=== PATIENT | male | born 1995 ===

== ENCOUNTER 2017-10-06 05:18 | Emergency (ER) | payer OTHER ==
[~2017-10-06] VITALS: Ht 182.9 cm; Wt 83.5 kg
--- NOTE | 2017-10-06 05:47 | ED Fall/Injury ---
General Stated Complaint: FELL IN BATHRM,RT SHOULDER & BACK OF HEAD PAIN Source: patient Exam Limitations: no limitations History of Present Illness Date Seen by Provider: Oct 06, 2017 Time Seen by Provider: 05:40 Initial Comments Patient presents to ER by private conveyance with his significant other's with chief complaint that just prior to arrival he fell in his bathroom striking his shoulder and the back of his head. He is having some pain in the top of the back of his neck that does not radiate. He has pain in his shoulder and a little bit of pain in the back of his arm down to his elbow. He has some abrasions on the back of his shoulder and arm as well. He denies any other trauma, fighting. He says he had one beer tonight. He does not use tobacco or recreational drugs. He is not on any medications or blood thinners. He has not had anything for the pain yet. He is not having any numbness tingling blindness , blurry vision, nausea or vomiting. Allergies and Home Medications Allergies Coded Allergies: No Known Drug Allergies (Unverified , 10/06/17) Patient Home Medication List Home Medication List Reviewed: Yes Constitutional: No chills, No diaphoresis Eyes: Denies Blindness, Denies Blurred Vision Ears, Nose, Mouth, Throat: denies ear pain, denies ear discharge Respiratory: No cough, No short of breath Cardiovascular: No chest pain, No palpitations Gastrointestinal: No abdominal pain, No constipation, No nausea, No vomiting Genitourinary: No discharge, No dysuria Past Tdfuthx-Mmtsho-Wpvtta Hx Patient Social History Alcohol Use: Occasionally Uses Alcohol Beverage of Choice: Beer Recreational Drug Use: No Smoking Status: Never a Smoker Recent Foreign Travel: No Contact w/Someone Who Travel: No Physical Exam Vital Signs Vital Signs - First Documented 10/06/17 05:40 Temp 98.0 Pulse 98 Resp 20 B/P (MAP) 142/81 (101) Pulse Ox 99 O2 Delivery Room Air Capillary Refill : General Appearance: WD/WN, no apparent distress HEENT: PERRL/EOMI, normal ENT inspection, TMs normal, pharynx normal, other ( negative for hemotympanum, gómez sign or raccoon eyes; Hematoma right occiput) Neck: supple, tender lateral (right) Cardiovascular: normal peripheral pulses, regular rate, rhythm Respiratory: chest non-tender, lungs clear, normal breath sounds, no respiratory distress, no accessory muscle use Peripheral Pulses: 2+ Radial Pulses (R), 2+ Radial Pulses (L) Neurologic/Psychiatric: jet wiper II-XII nml as tested, no motor/sensory deficits, alert, normal mood/affect, oriented x 3 Skin: other (abrasion on right scapula, right occiput of head and small abrasion on the right elbow) [place] Coma Score Best Eye Response: (4) Open Spontaneously Best Verbal Response: (5) Oriented Best Motor Response: (6) Obeys Commands Walt Total: 15 Progress/Results/Core Measures Results/Orders My Orders Orders - JEANETTE RIOS Ct Head/Cervical Spine Wo (10/06/17 05:47) Shoulder, Right, 3 Views (10/06/17 05:47) Elbow, Right, 3 Views (10/06/17 05:47) Ketorolac Injection (Toradol Injection) (10/06/17 06:00) Vital Signs/I&O Vital Sign - Last 12Hours 10/06/17 05:40 Temp 98.0 Pulse 98 Resp 20 B/P (MAP) 142/81 (101) Pulse Ox 99 O2 Delivery Room Air Progress Note : Time: 06:40 Progress Note C-collar cleared. Patient's having any pain in his neck. He does have a little tenderness in the hematoma on the back of his head. Rest imaging is unremarkable. We discussed soft tissue pain management with Tylenol, NSAIDs, ice. We will give him a dose of Toradol for the road. Diagnostic Imaging Diagonstic Imaging: Xray Plain Films/CT/US/NM/MRI: other (right shoulder) Comments No acute osseous abnormalities noted. Unremarkable soft tissues. Reviewed: Reviewed by Me Diagonstic Imaging: Xray Plain Films/CT/US/NM/MRI: elbow Comments No soft tissue abnormalities noted. No acute osseous abnormality's. Reviewed: Reviewed by Me Diagonstic Imaging: CT Plain Films/CT/US/NM/MRI: c-spine, head Comments No intracranial hemorrhage, mass effect, midline shift, tumor, cervical spine fracture/dislocation/subluxation noted. [facility]ed: [facility]ed by [facility] Departure Impression Impression: Primary Impression: Fall Qualified Codes: W19.XXXA - Unspecified fall, initial encounter Additional Impressions: Hematoma of occipital surface of head Qualified Codes: S00.83XA - Contusion of other part of head, initial encounter Shoulder pain, right Qualified Codes: M25.511 - Pain in right shoulder Abrasion shoulder/arm Disposition: 01 HOME, SELF-CARE Condition: Stable Departure-Patient Inst. Decision time for Depature: 06:45 Referrals: [facility] (PCP/Family) Primary Care Physician Patient Instructions: Concussion, Adult (DC) Add. Discharge Instructions: Apply an ice pack to the areas that are having swelling or pain for 20 minutes every 2 hours as needed for the first 3 days. You can also use Tylenol 1000 mg every 8 hours and/or ibuprofen 800 mg every 8 hours. If you do not feel that your pain and swelling is improving soon enough you can follow up with [facility]. JEANETTE RIOS Oct 06, 2017 05:47
[2017-10-06] MEDS ORDERED: KETOROLAC 30 MG/ML VIAL IVP ONE (06:00)
[2017-10-06 07:01] VITALS: BP 142/81
--- NOTE | 2017-10-06 07:32 | Diagnostic Imaging Report ---
INDICATION: Right shoulder and elbow pain. 3 views of the right shoulder. Glenohumeral joint is in good alignment. AC joint is in good alignment. There are no fractures. No hypertrophic bony changes. IMPRESSION: Normal right shoulder. Dictated by: Dictated on workstation # [id number]
--- NOTE | 2017-10-06 07:34 | Diagnostic Imaging Report ---
INDICATION: Fall. Right elbow pain. FINDINGS: 3 views. There are no fractures. Radial head is in good alignment with capitellum. Olecranon process and trochlea are in good alignment. No joint effusion. IMPRESSION: Normal right elbow. Dictated by: Dictated on workstation # [id number]
--- NOTE | 2017-10-06 07:35 | Diagnostic Imaging Report ---
PROCEDURE: CT head and CT cervical spine without contrast. TECHNIQUE: Multiple contiguous axial images were obtained through the brain and cervical spine without the use of intravenous contrast. Sagittal and coronal reformations through the cervical spine were then performed. INDICATION: Pain to right shoulder and right elbow. C-collar in place. FINDINGS: CT head: Ventricles and cortical gyral pattern are normal. There is no intracranial hemorrhage. No mass effect. No extraaxial fluid collection. Basal cisterns and CP angles are normal. Mastoid air cells and paranasal sinuses are free of air-fluid levels. There is mild mucosal thickening in the right maxillary sinus. Also mild mucosal thickening ethmoid sinuses. No evidence of calvarial fracture. IMPRESSION: 1. No acute intracranial abnormalities. 2. Mild inflammatory changes right maxillary sinus and ethmoid sinuses. CT cervical spine: Sagittal and coronal images show good alignment. Body heights and disc spaces are well-maintained. There are no fractures. No spinal stenosis. The atlantoaxial joint is normal. Soft tissues are normal. IMPRESSION: Normal CT scan of the cervical spine. These findings are concordant with the preliminary report. Dictated by: Dictated on workstation # [id number]
== END 2017-10-06 07:01 | disposition home or self-care (01) ==
LOC: ER 05:22
DX: S00.83XA Contusion of other part of head, initial encounter (principal); S40.211A Abrasion of right shoulder, initial encounter; M25.511 Pain in right shoulder; R40.2142 Coma scale, eyes open, spontaneous, at arrival to emergency department; R40.2252 Coma scale, best verbal response, oriented, at arrival to emergency department; R40.2362 Coma scale, best motor response, obeys commands, at arrival to emergency department; W01.10XA Fall on same level from slipping, tripping and stumbling with subsequent striking against unspecified object, initial encounter; Y92.002 Bathroom of unspecified non-institutional (private) residence as the place of occurrence of the external cause
CPT/HCPCS: 70450; 72125; 73030; 73080; 96374; 99283